=== PATIENT | female | born 2005 | race Caucasian/White ===

== ENCOUNTER 2023-11-01 15:46 | Emergency (ER) | payer OTHER ==
[~2023-11-01] VITALS: Ht 165.1 cm; Wt 65.9 kg
[~2023-11-01 15:46] MED LIST: NOCURR
[2023-11-01 15:56] VITALS: TEMP 98.3
[2023-11-01 16:05] LABS: GLUCOMETER DEV NAME(LOC) ERT.5; GLUCOSE,POINT OF CARE 77 MG/DL (70-110)
[2023-11-01 16:15] LABS: COVID AG,FIA SOURCE NASAL SWAB
[2023-11-01 16:36] LABS: APPEARANCE,URINE CLEAR (CLEAR); BILIRUBIN,URINE NEGATIVE (NEGATIVE); COLOR,URINE YELLOW (YELLOW); GLUCOSE, URINE (UA) NEGATIVE (NEGATIVE); KETONES,URINE =>150 mg/dL (NEGATIVE); LEUKOCYTE ESTERASE ,URINE NEGATIVE (NEGATIVE); NITRATE,URINE NEGATIVE (NEGATIVE); OCCULT BLOOD,URINE SMALL (NEGATIVE); PH,URINE 5.5 (5.0-8.0); PROTEIN,URINE 30-70 mg/dL (NEGATIVE); SPECIFIC GRAVITIY, URINE 1.034 (1.003-1.030); UROBILINOGEN,URINE <=1.0 mg/dL (<=1.0)
[2023-11-01 16:40] LABS: INFLUENZA TYPE A NEGATIVE FOR TYPE A (NEGATIVE); INFLUENZA TYPE B NEGATIVE FOR TYPE B (NEGATIVE); SARS-COV2 (COVID) ANTIGEN,FIA Negative (Negative)
[2023-11-01 16:43] LABS: BASOPHILS % (AUTO) 1.2 % (0.0-2.0); EOSINOPHILS % (AUTO) 0.3 % (1.0-6.0); HEMATOCRIT 40.1 % (36-46); HEMOGLOBIN 13.5 g/dL (12.0-16.0); LYMPHOCYTES # (AUTO) 1.8 K/uL (1.0-4.8); LYMPHOCYTES % (AUTO) 18.5 % (22.0-44.0); MEAN CORPUSCULAR HEMOGLOBIN 27.1 pg (26.0-34.0); MEAN CORPUSCULAR HGB CONC 33.6 G/dL (31.0-37.0); MEAN CORPUSCULAR VOLUME 81 fL (80-100); MONOCYTES # (AUTO) 0.4 K/uL (0.1-1.0); MONOCYTES % (AUTO) 4.6 % (2.0-9.0); NEUTROPHILS # (AUTO) 7.3 K/uL (1.8-7.7); NEUTROPHILS % (AUTO) 75.4 % (40.0-70.0); PLATELET COUNT (AUTO) 352 K/uL (150-450); RED BLOOD CELL COUNT(AUTO) 4.96 MIL/uL (4.00-5.20); RED CELL DISTRIBUTION WIDTH 14.6 % (11.5-14.5); WHITE BLOOD COUNT (AUTO) 9.7 K/uL (4.5-11.0)
[2023-11-01 16:52] LABS: ANION GAP 14 mmol/L (8-16); CALCIUM, TOTAL 8.9 mg/dL (8.8-10.5); CARBON DIOXIDE 21 mmol/L (22-29); CHLORIDE 100 mmol/L (98-107); CREATININE 0.63 mg/dL (0.60-1.30); GLOMERULAR FILTR. RATE CALC > 60 mL/min (>60); GLUCOSE,RANDOM 91 mg/dL (70-110); POTASSIUM 3.2 mmol/L (3.5-5.1); SODIUM SERUM 135 mmol/L (136-145); UREA NITROGEN, BLOOD 7 mg/dL (7-18)
[2023-11-01 16:57] LABS: ALANINE AMINOTRANSFERASE 14 U/L (12-78); ALBUMIN 4.6 g/dL (3.4-5.0); ALKALINE PHOSPHATASE 57 U/L (46-116); ASPARTATE AMINOTRANSFERASE 14 U/L (15-37); BILIRUBIN,TOTAL 0.9 mg/dL (0.1-1.0); LIPASE 45 U/L (16-77); TOTAL PROTEIN, SERUM 8.4 g/dL (6.4-8.2)
[2023-11-01] MEDS: SODIUM CHLORIDE 0.9% 2,000 ML IV ONE (17:08)
[2023-11-01] MEDS: ONDANSETRON HCL 4 MG/2 ML VIAL IVP ONE (17:09)
[2023-11-01] MEDS: ACETAMINOPHEN 500 MG TABLET PO ONE (17:09)
[2023-11-01] MEDS: DIPHENOXYLATE/ATROP 2.5-0.025 MG TABLET PO ONE (17:09)
[2023-11-01 17:14] LABS: BACTERIA,URINE Few /HPF (None Seen); SQUAMOUS EPITHELIAL CELL,UR Few /LPF (None Seen)
[2023-11-01 19:25] VITALS: BP 134/77; PULSE 69; RESP 18
[2023-11-01] MEDS ORDERED: ONDA-104 PO (19:29)
== END 2023-11-01 19:20 | disposition home or self-care (01) ==
LOC: EMS 15:46
DX: O21.0 Mild hyperemesis gravidarum (principal); O26.91 Pregnancy related conditions, unspecified, first trimester; J45.909 Unspecified asthma, uncomplicated; Z20.822 Contact with and (suspected) exposure to COVID-19
CPT/HCPCS: 99285; 96374; 76801; 96361; 87426; 80053; 81001; 82962; 83690; 84702; 84703; 85025; 87804; 36415; J2405; J7030

== ENCOUNTER 2024-09-21 00:01 | Emergency (ER) | payer OTHER ==
[2024-09-20 00:42] VITALS: PULSE 80; RESP 18; O2SAT 100
[2024-09-20 00:45] VITALS: PULSE 80; RESP 18; O2SAT 100
[2024-09-20 01:00] VITALS: PULSE 82; RESP 16; O2SAT 100
[~2024-09-21] VITALS: Ht 165.1 cm; Wt 64.2 kg
[~2024-09-21 00:01] MED LIST changes: +ONDA-104 PO
[2024-09-21 00:03] VITALS: TEMP 98
[2024-09-21] MEDS ORDERED: ALBU18HF12 IH (00:06)
[2024-09-21 00:28] LABS: COVID AG,FIA SOURCE NASAL SWAB
[2024-09-21 00:42] VITALS: PULSE 80; RESP 18; O2SAT 100
[2024-09-21] MEDS: IPRATROPIUM BROMIDE 0.5 MG/2.5 ML NEB SOLUTION NEB ONE (00:44)
[2024-09-21 00:45] VITALS: PULSE 80; RESP 18; O2SAT 100
[2024-09-21] MEDS: ALBUTEROL SULFATE 2.5 MG/0.5 ML NEB SOLUTION NEB ONE (00:45)
[2024-09-21] MEDS: PredniSONE 20 MG TABLET PO ONE (00:48)
[2024-09-21] MEDS ORDERED: PRED-554 PO (00:56)
[2024-09-21] MEDS: ALBUTEROL SULFATE HFA 90 MCG/PUFF 8 GM INHALER IH ONE (00:57)
[2024-09-21 01:00] VITALS: BP 118/70; O2SAT 100
[2024-09-21 01:01] VITALS: PULSE 82; RESP 16; O2SAT 100
[2024-09-21 01:05] VITALS: PULSE 82; RESP 16; O2SAT 100
[2024-09-21 01:09] LABS: INFLUENZA TYPE A NEGATIVE FOR TYPE A (NEGATIVE); INFLUENZA TYPE B NEGATIVE FOR TYPE B (NEGATIVE); SARS-COV2 (COVID) ANTIGEN,FIA Negative (Negative)
== END 2024-09-21 01:06 | disposition home or self-care (01) ==
LOC: EMS 00:01
DX: J45.909 Unspecified asthma, uncomplicated (principal); Z20.822 Contact with and (suspected) exposure to COVID-19
CPT/HCPCS: 99283; 87426; 87804; 94640; J7512; J3535; 94060

== ENCOUNTER 2024-10-19 00:57 | Emergency (ER) | payer OTHER ==
[~2024-10-19] VITALS: Ht 165.1 cm; Wt 65.9 kg
[~2024-10-19 00:57] MED LIST changes: +ALBU18HF12 IH; -NOCURR; -ONDA-104 PO; +PRED-554 PO
[2024-10-19 01:50] VITALS: BP 114/80; TEMP 97.705256; O2SAT 99
[2024-10-19] MEDS ORDERED: 0.9% SODIUM CHLORIDE 5 ML NEB SOLUTION NEB ONE (02:48)
[2024-10-19] MEDS: IPRATROPIUM BROMIDE 0.5 MG/2.5 ML NEB SOLUTION NEB ONE (02:54)
[2024-10-19] MEDS: ALBUTEROL SULFATE 2.5 MG/0.5 ML NEB SOLUTION NEB ONE (02:54)
[2024-10-19 02:55] VITALS: PULSE 75; RESP 18; O2SAT 98
[2024-10-19 03:20] VITALS: PULSE 76; RESP 18; O2SAT 98
[2024-10-19] MEDS ORDERED: ALBU18HF12 IH (03:33)
[2024-10-19] MEDS: ALBUTEROL SULFATE HFA 90 MCG/PUFF 8 GM INHALER IH ONE (03:42)
== END 2024-10-19 03:52 | disposition home or self-care (01) ==
LOC: EMS 00:57
DX: J45.901 Unspecified asthma with (acute) exacerbation (principal); Z79.52 Long term (current) use of systemic steroids
CPT/HCPCS: 99283; 94640; J3535